=== PATIENT | male | born 1955 | race Caucasian/White ===

== ENCOUNTER 2024-05-08 12:51 | Outpatient (CLI) | payer MEDICARE, BC, SELFPAY | END 2024-05-08 12:52 | disposition home or self-care (01) | LOC: MRI 12:53 | PROVIDERS: PCP Family Medicine; Visit Provider Orthopaedic Surgery Sports Medicine | DX: M25.512 Pain in left shoulder (principal); S46.912A Strain of unspecified muscle, fascia and tendon at shoulder and upper arm level, left arm, initial encounter; M75.22 Bicipital tendinitis, left shoulder; M75.02 Adhesive capsulitis of left shoulder; M75.52 Bursitis of left shoulder; S46.012A Strain of muscle(s) and tendon(s) of the rotator cuff of left shoulder, initial encounter | CPT/HCPCS: 73221 ==

== ENCOUNTER 2024-06-11 06:06 | Day surgery (SDC) | payer MEDICARE, BC, SELFPAY ==
[2024-06-11] VITALS (15 sets, daily range): BP systolic 109–128; BP diastolic 64–85; PULSE 52–77; RESP 16–20; TEMP 36.4–36.7; O2SAT 92–96; BMI 30.2
[2024-06-11] MEDS: LACTATED RINGERS 1000 ML 1,000 ML 100 ML IV (06:10)
[2024-06-11] MEDS: SODIUM CHLORIDE 0.9 % (FLUSH) 10 ML SYRINGE IVF (06:59)
--- NOTE | 2024-06-11 07:10 | W.PM.H&PU ---
History & Physical Update History & Physical Update H&P Reviewed and patient assessed: No changes noted
[2024-06-11] MEDS: fentaNYL 100 MCG/2 ML inj IVP (07:15)
[2024-06-11] MEDS: MIDAZOLAM HCL 1 MG/ML inj IVP (07:15)
--- NOTE | 2024-06-11 07:19 | SUR.PREOP ---
TIME?OUT:?713, left shoulder PT/RN/MDA?VERIFICATION?OF?SURGICAL?SITE,?PROCEDURE,?AND?CONSENT OBTAINED?PRIOR?TO?INVASIVE?PROCEDURE.
[2024-06-11] MEDS: CEFAZOLIN 2 GM in 0.9 % SODIUM CHLORIDE Mini-bag 100 ML IVPB (07:40)
[2024-06-11] MEDS: EPINEPHrine 1 MG in SODIUM CHLORIDE IRRIG SOLUTION 3,000 ML 9003 MG IRRIGATION ×2 (07:53→08:30)
--- NOTE | 2024-06-11 09:00 | PM.ORPRC ---
Procedure Note Date of procedure: 06/11/24 Procedure: PREOPERATIVE DIAGNOSES: 1. Left shoulder rotator cuff tear. 2. Left shoulder long head biceps partial-thickness tearing with tenosynovitis 3. Left shoulder subacromial impingement syndrome. POSTOPERATIVE DIAGNOSES: 1. Left shoulder rotator cuff tear - upper border subscapularis and high-grade partial-thickness supraspinatus. 2. Left shoulder long head biceps partial-thickness tearing with tenosynovitis 3. Left shoulder subacromial impingement syndrome. NAME OF OPERATION: 1. Left shoulder arthroscopic rotator cuff repair - upper border subscapularis and high-grade partial-thickness supraspinatus repaired 2. Left shoulder arthroscopic biceps tenodesis 3. Left shoulder arthroscopic bursectomy, subacromial decompression/partial acromioplasty. SURGEON: Jm Qureshi MD RADIO INTELLIGENCE OPERATOR: Floyd Ochoa PA-C. Of note, a skilled guest services assistant was critical for this case to aide in patient positioning, suture manipulation, arm positioning, instrument positioning, and closure. ANESTHESIA: General plus preoperative supraclavicular block. EBL: 25 mL IMPLANTS: Arthrex 4.75 mm BioComposite SwiveLock suture anchor (x1); Arthrex 5.5 mm BioComposite SwiveLock suture anchor (x1) Arthrex 2.6 mm standard FiberTak RC ) x1) COMPLICATIONS: None evident INDICATIONS: The patient is a pleasant, 68-year-old male who has experienced left shoulder pain that has been increasing in recent time. Physical exam and imaging were consistent with a rotator cuff tear. Given their findings, as well as the weakness and pain, and inadequate response to nonoperative management, recommendation was made for surgery. FINDINGS: Exam under anesthesia revealed stable shoulder with excellent range of motion. The diagnostic arthroscopy revealed healthy chondral surfaces of the glenohumeral joint. The Subscapularis tendon was torn from its upper border with mild retraction. The long head of the biceps tendon was torn in moderate grade partial-thickness manner at the proximal extent of the bicipital groove. However, the biceps was also pulling from the labral tissue that had some tearing from the anterior and superior aspects causing displacement of this labral tissue when engaged. The superior rotator cuff tendon was found to be torn and high-grade partial-thickness manner through the midportion of the supraspinatus. He had a positive sail sign indicating there was still seal from the fibers, but upon probing from the bursal side, it readily penetrated through this supraspinatus tissue indicating poor integrity. The labrum was torn from the anterior and anterosuperior aspects as I mentioned with the biceps, but no jamar displaced tissue or flat fragments. No loose bodies were identified within the pouch or subscapularis recess. PROCEDURE: Following a thorough discussion of risks, benefits, and alternatives, consent was obtained and the left shoulder was marked. The patient was brought to the operating room and placed supine on the operating table. Induction of anesthesia was completed after preoperative supraclavicular block was administered in preop holding. Appropriate time out was performed identifying proper patient, site, and procedure. 2 g IV Ancef was administered within 1 hour of incision preoperatively. The left upper extremity was prepped and draped in the appropriate sterile fashion using ChloraPrep prep. This was after the patient was positioned in the beach chair with their head in neutral alignment and all bony prominences well padded. The shoulder was insufflated with 20mL of normal saline via an 18g spinal needle from a posterior approach. An 11 blade skin incision allowed a blunt trochar to be inserted and diagnostic arthroscopy to be performed with the findings as noted above. An anterior portal was established with an outside in technique. This allowed the probe to be inserted and confirm the diagnostic arthroscopic findings. The shaver was then inserted and allowed debridement of the lesser tuberosity. In addition, the bur on reverse an arthroscopic rasp was utilized for the bicipital groove and lesser tuberosity for ventral biceps tenodesis and subscap repair. Additionally, the long of the biceps was released from the bicipital tuberosity for arthroscopic tenodesis. The tendon was externalized out the anterior portal and whipstitched in a running locking fashion with FiberLink suture. The proximal 2 cm of the stump was excised. This was tenodesed in the proximal bicipital groove/lesser tuberosity region in the same anchor for the subscap repair as noted below. The stump was debrided with a shaver. Following this, the upper border subscapularis was repaired after debriding the lesser tuberosity with the shaver and [place] cautery. Subscapularis was captured in horizontal mattress fashion with a fiber tape suture. The tails were brought to a single anchor in the lesser tuberosity with excellent reapproximation of the subscap tendon and good excursion/tension. Thereafter, the subacromial space was entered. Here, a complete bursectomy and partial acromioplasty/subacromial decompression was performed with a combination of radiofrequency ablator, the shaver, and a 5.5 mm bur. Further inspection of the supraspinatus and infraspinatus rotator cuff was performed. [This identified the tear of the high-grade partial-thickness supraspinatus. A 2.6 mm standard FiberTak RC anchor was utilized. The anchor sleeve was placed down to the greater tuberosity and the anchor inserted with excellent security. The 4 tails were then passed independently and brought to a single lateral row anchor. Reapproximation of the rotator cuff tissue to the greater tuberosity was noted. The shoulder was placed through range of motion found be stable. Prior to anchor auto transport driver removal, the eyelet sutures were tugged on for each anchor and found that the anchor had excellent stability within the bone. The shoulder was placed through range of motion and found to be stable. The rotator cuff was re-probed and found to be stable. Instruments were removed. Excess fluid was drained, closure performed with 4-0 Monocryl and Steri-Strips. Dressings were applied. Sling was applied. The patient was awoken from anesthesia and transferred to the PACU in stable condition. A skilled guest services assistant was critical for this case to aid in patient positioning, limb positioning, skill to manipulate arthroscopic instruments and camera, suture management, patient safety, and closure. PLAN: 1. Elbow, forearm, wrist and digit range of motion of operative extremity as tolerated. 2. Encouraged ice. 3. Oxycodone for pain as needed. 4. Sling at all times except for ROM and showering. 5. Follow up with PA visit in 1-2 weeks for wound check. Initiate physical therapy following that visit for passive range of motion. Initiate active assisted range of motion at 2-3 weeks. May do pendulums now.
--- NOTE | 2024-06-11 09:19 | W.ANESCHARGE ---
Anesthesia Charges Start Date/Time Anesthesia Start Date: 06/11/24 Anesthesia Start Time: 07:25 Stop Date/Time Anesthesia Stop Date: 06/11/24 Anesthesia Stop Time: 09:15 Coding CPT Codes CPT Codes: ANESTH SURGERY OF SHOULDER - 57366 ([id number]) P2 - PATIENT W/MILD SYST DISEASE, QX - PURCHASING ADMINISTRATIVE ASSISTANT SVC W/ MD MED DIRECTION, QK - COSMETOLOGY EDUCATOR 2-4 CNCRNT ANES PROC
--- NOTE | 2024-06-11 09:31 | W.ANESCHARGE ---
Anesthesia Charges Start Date/Time Anesthesia Start Date: 06/11/24 Anesthesia Start Time: 07:25 Stop Date/Time Anesthesia Stop Date: 06/11/24 Anesthesia Stop Time: 09:15 Coding CPT Codes CPT Codes: ANESTH SURGERY OF SHOULDER - 08558 ([id number]) QK - TOBACCO CLOTH RECLAIMER 2-4 CNCRNT ANES PROC, QX - DIRECTOR SHIP SVC W/ MD MED DIRECTION, P2 - PATIENT W/MILD SYST DISEASE
--- NOTE | 2024-06-11 09:32 | W.PM.NB ---
Nerve Block Nerve Block Time Seen by Provider: 07:17 Date Seen: 06/11/24 Type of block requested by surgeon for post-operative analgesia: supraclavicular Side: left Time out performed: Yes Verification of patient name: Yes Verification of date of : Yes Site marking: site marked Name of person performing procedure: Jamal Continuous monitoring Was continuous monitoring of O2 sat, B/P, hazmat truck driver, recorded every 15 minutes?: Yes Procedure Checklist: sterile prep, needles and gloves Ultrasound guided. Images saved: Yes Medications given in 5ml increments after negative aspiration: Ropivicaine %: 0.5 mL: 20 Needle gauge: 22 Precedex (mcg): 25 Patient tolerated procedure well: Yes Block Charges Block Charge (with Pro Fee): Brachial Plexus Use of Ultrasound Machine for Block: Yes- US Guidance/pain block
== END 2024-06-11 11:08 | disposition home or self-care (01) ==
PROVIDERS: PCP Family Medicine; Visit Provider Orthopaedic Surgery Sports Medicine
PROC: (CPT 29805; principal; 2024-06-11 07:30)
DX: S46.012A Strain of muscle(s) and tendon(s) of the rotator cuff of left shoulder, initial encounter (principal); M75.22 Bicipital tendinitis, left shoulder; M75.42 Impingement syndrome of left shoulder; S43.432A Superior glenoid labrum lesion of left shoulder, initial encounter; G89.18 Other acute postprocedural pain
CPT/HCPCS: 29827; 29828; 29826; 01630; 64415; 76942; C1713; J0171; J0330; J0690; J1100; J2250; J2371; J2405; J2704; J2795; J3010; J7120; L3670